=== PATIENT | female | born 1940 | race Hispanic/Latino ===

== ENCOUNTER 2017-09-14 17:08 | Emergency (ER) | payer OTHER, MEDICARE ==
[2017-09-14] MEDS ORDERED: TETANUS/DIPHTHERIA TOXOID [ADULT] 0.5 ML VIAL IM ONE (17:37)
== END 2017-09-14 17:47 | disposition home or self-care (01) ==
LOC: EDH 17:08
DX: S81.811A Laceration without foreign body, right lower leg, initial encounter (principal); E78.5 Hyperlipidemia, unspecified; I10 Essential (primary) hypertension; W22.8XXA Striking against or struck by other objects, initial encounter; Y93.89 Activity, other specified; Y92.89 Other specified places as the place of occurrence of the external cause; Y99.8 Other external cause status
CPT/HCPCS: 90471; 90714

== ENCOUNTER → 2017-10-05 | Outpatient (CLI) | payer OTHER, MEDICARE | END | disposition home or self-care (01) | LOC: RAH 10:10 | PROVIDERS: ATTEND Family Medicine | DX: Z12.31 Encounter for screening mammogram for malignant neoplasm of breast (principal) | CPT/HCPCS: 77067 ==

== ENCOUNTER → 2017-10-23 | Outpatient (CLI) | payer OTHER, MEDICARE | END | disposition home or self-care (01) | LOC: RAH 13:00 | PROVIDERS: ATTEND Family Medicine | DX: N63.20 Unspecified lump in the left breast, unspecified quadrant (principal); R92.8 Other abnormal and inconclusive findings on diagnostic imaging of breast | CPT/HCPCS: 76641; 77065 ==

== ENCOUNTER 2018-06-02 13:54 | Emergency (ER) | payer OTHER, MEDICARE ==
[2018-06-02] MEDS ORDERED: IPRATROPIUM/ALBUTEROL SULFATE 3 ML SOLUTION IH ONE (14:54)
[2018-06-02 15:09] LABS: BASOPHILS % (AUTO) 0.5 % (0.0-5.0); EOSINOPHILS % (AUTO) 1.8 % (0.0-8.0); HEMATOCRIT 29.7 % (36-48); MEAN CORPUSCULAR HGB CONC 33.4 g/dL (32.0-36.0); MEAN CORPUSCULAR VOLUME 89.7 fL (79-99); MONOCYTES % (AUTO) 6.9 % (3.0-13.0); NEUTROPHILS % (AUTO) 68.8 % (40.0-77.0); PLATELET COUNT (AUTO) 190 K/uL (130-400); RED BLOOD CELL COUNT(AUTO) 3.32 MIL/uL (4.00-5.50); RED CELL DISTRIBUTION WIDTH 13.4 % (11.0-15.5); WHITE BLOOD COUNT (AUTO) 7.4 K/uL (4.8-10.8)
[2018-06-02 15:21] LABS: CREATININE 1.1 mg/dL (0.5-1.5); POTASSIUM 3.6 mmol/L (3.5-5.1)
[2018-06-02] MEDS ORDERED: METHYLPREDNISOLONE SOD SUCC 40MG/ML 1ML ONE (15:23)
== END 2018-06-02 16:11 | disposition home or self-care (01) ==
LOC: EDH 13:54
DX: J20.9 Acute bronchitis, unspecified (principal); I10 Essential (primary) hypertension; E78.5 Hyperlipidemia, unspecified; Z98.890 Other specified postprocedural states
CPT/HCPCS: 36415; 71045; 80048; 85025; 87804 ×2; 93005; 94640; 96372; 99285; J2920

== ENCOUNTER 2018-11-16 16:36 | Emergency (ER) | payer OTHER, MEDICARE ==
[2018-11-16 17:04] LABS: APPEARANCE,URINE Clear (CLEAR); BILIRUBIN,URINE Negative (NEGATIVE); COLOR,URINE Yellow (YELLOW); GLUCOSE, URINE (UA) Negative (NEGATIVE); KETONES,URINE Negative (NEGATIVE); LEUKOCYTE ESTERASE ,URINE Negative (NEGATIVE); NITRATE,URINE Negative (NEGATIVE); OCCULT BLOOD,URINE Negative (NEGATIVE); PROTEIN,URINE Negative (NEGATIVE)
[2018-11-16] MEDS ORDERED: ONDANSETRON ODT 4 MG TAB ONE (18:01)
== END 2018-11-16 18:22 | disposition home or self-care (01) ==
LOC: EDH 16:36
DX: R30.0 Dysuria (principal); R35.0 Frequency of micturition; R11.0 Nausea; E78.5 Hyperlipidemia, unspecified; I10 Essential (primary) hypertension
CPT/HCPCS: 81003

== ENCOUNTER 2020-01-10 14:56 | Emergency (ER) | payer OTHER, MEDICARE ==
[2020-01-10] MEDS ORDERED: TETANUS/DIPHTHERIA TOXOID [ADULT] 0.5 ML VIAL IM ONE (16:37)
== END 2020-01-10 16:42 | disposition home or self-care (01) ==
LOC: EDH 14:56
DX: S81.811A Laceration without foreign body, right lower leg, initial encounter (principal); E78.5 Hyperlipidemia, unspecified; I10 Essential (primary) hypertension; W26.8XXA Contact with other sharp object(s), not elsewhere classified, initial encounter; Y93.E9 Activity, other interior property and clothing maintenance; Y92.89 Other specified places as the place of occurrence of the external cause; Y99.8 Other external cause status
CPT/HCPCS: 90471; 90714

== ENCOUNTER 2021-05-30 08:57 | Inpatient (IN) | payer OTHER, MEDICARE ==
[2021-05-30] VITALS (12 sets, daily range): BP systolic 102–174; BP diastolic 45–86
[~2021-05-30] VITALS: Ht 154.9 cm; Wt 79.1 kg
[2021-05-30] MEDS ORDERED: ACETAMINOPHEN 325 MG TAB PO SCH (09:30)
[2021-05-30] MEDS ORDERED: MAG/ALUM/SIMETH 30 ML UDCUP PO SCH (09:30)
[2021-05-30] MEDS ORDERED: LACTATED RINGERS 1000ML 1,000 ML IV SCH (09:30)
[2021-05-30 09:47] LABS: BASOPHILS % (AUTO) 0.2 % (0.0-5.0); EOSINOPHILS % (AUTO) 0.2 % (0.0-8.0); HEMATOCRIT 32.3 % (36-48); LYMPHOCYTES % (AUTO) 14.5 % (21.0-51.0); MEAN CORPUSCULAR HEMOGLOBIN 30.9 pg (27.0-33.0); MEAN CORPUSCULAR HGB CONC 36.2 g/dL (32.0-36.0); MEAN CORPUSCULAR VOLUME 85.2 fL (79-99); NEUTROPHILS % (AUTO) 76.7 % (40.0-77.0); PLATELET COUNT (AUTO) 287 K/uL (130-400); RED BLOOD CELL COUNT(AUTO) 3.79 MIL/uL (4.00-5.50); RED CELL DISTRIBUTION WIDTH 11.9 % (11.0-15.5); WHITE BLOOD COUNT (AUTO) 12.4 K/uL (4.8-10.8)
[2021-05-30] MEDS ORDERED: LACTATED RINGERS 1000ML 1,000 ML IV ONE (10:01)
[2021-05-30 10:08] LABS: ALBUMIN 3.6 g/dL (3.5-5.0); BILIRUBIN,TOTAL 0.8 mg/dL (0.2-1.0); CREATININE 0.7 mg/dL (0.5-1.5); POTASSIUM 3.9 mmol/L (3.5-5.1); TOTAL PROTEIN, SERUM 7.2 g/dL (6.0-8.3)
[2021-05-30 10:11] LABS: APPEARANCE,URINE Clear (CLEAR); BILIRUBIN,URINE Negative (NEGATIVE); COLOR,URINE Yellow (YELLOW); GLUCOSE, URINE (UA) Negative (NEGATIVE); KETONES,URINE Negative (NEGATIVE); LEUKOCYTE ESTERASE ,URINE Negative (NEGATIVE); NITRATE,URINE Negative (NEGATIVE); OCCULT BLOOD,URINE Negative (NEGATIVE); PH,URINE 7.5 (5.0-8.0); PROTEIN,URINE Negative (NEGATIVE); UROBILINOGEN,URINE 0.2 mg/dL (0.2-1.0)
[2021-05-30] MEDS ORDERED: HYDR25TA PO (10:18)
[2021-05-30] MEDS ORDERED: FAMO20TA8 PO (10:18)
[2021-05-30] MEDS ORDERED: OMEP40CA21 PO (10:18)
[2021-05-30] MEDS ORDERED: LOSA50TA64 PO (10:18)
[2021-05-30] MEDS ORDERED: METR-172 PO (10:18)
[2021-05-30] MEDS ORDERED: ATOR10 PO (10:18)
[2021-05-30] MEDS ORDERED: DOCUSATE SODIUM 100 MG CAP PO PRN (11:00)
[2021-05-30] MEDS ORDERED: NITROGLYCERIN 50MG/D5W 250ML 250 BOT IV SCH (11:00)
[2021-05-30] MEDS ORDERED: CEFTRIAXONE 1G VIAL IVP SCH (11:00)
[2021-05-30] MEDS ORDERED: HYDRALAZINE 20MG/ML VIAL IV PRN (11:00)
[2021-05-30] MEDS ORDERED: HYDRALAZINE 20MG/ML VIAL IV SCH (11:00)
[2021-05-30] MEDS: 0.9%NACL 1000ML 1,000 ML IV SCH ×3 (11:44→22:37)
[2021-05-30] MEDS ORDERED: LOSARTAN 50 MG TABLET ONE (14:06)
[2021-05-30] MEDS ORDERED: 0.9%NACL 1000ML 1,000 ML IV ONE (14:07)
[2021-05-30] MEDS ORDERED: LOSARTAN 50 MG TABLET PO SCH (15:20)
[2021-05-30 16:15] LABS: CREATININE 0.6 mg/dL (0.5-1.5); POTASSIUM 3.4 mmol/L (3.5-5.1)
[2021-05-30] MEDS ORDERED: INSULIN HUMULIN R 100 UNIT/ML 3ML SQ SCH (16:30)
[2021-05-30] MEDS: INSULIN HUMULIN R 100 UNIT/ML 3ML SQ SCH ×2 (16:30→20:29)
[2021-05-30] MEDS ORDERED: GLUCAGON 1MG KIT 1 MG ML IM PRN (16:30)
[2021-05-30] MEDS ORDERED: DEXTROSE 50%-WATER 50 ML DISP.SYRIN IV PRN (16:30)
[2021-05-30] MEDS ORDERED: HYDRALAZINE 20MG/ML VIAL ONE (17:11)
[2021-05-30] MEDS ORDERED: SODIUM CHLORIDE 1,000 MG TAB PO SCH ×2 (17:40→21:00)
[2021-05-30 20:05] LABS: POTASSIUM 3.5 mmol/L (3.5-5.1)
[2021-05-30] MEDS: ATORVASTATIN 10 MG TABLET PO SCH (21:00)
[2021-05-31] VITALS (24 sets, daily range): BP systolic 96–147; BP diastolic 47–79
[2021-05-31 00:34] LABS: CREATININE 0.9 mg/dL (0.5-1.5); POTASSIUM 3.6 mmol/L (3.5-5.1)
[2021-05-31 03:59] LABS: HEMATOCRIT 29.2 % (36-48); MEAN CORPUSCULAR HGB CONC 36.3 g/dL (32.0-36.0); MEAN CORPUSCULAR VOLUME 85.4 fL (79-99); RED BLOOD CELL COUNT(AUTO) 3.42 MIL/uL (4.00-5.50); RED CELL DISTRIBUTION WIDTH 12.4 % (11.0-15.5); WHITE BLOOD COUNT (AUTO) 10.6 K/uL (4.8-10.8)
[2021-05-31 04:12] LABS: CREATININE 0.8 mg/dL (0.5-1.5); POTASSIUM 3.7 mmol/L (3.5-5.1)
[2021-05-31] MEDS ORDERED: PANTOPRAZOLE 40 MG TAB DR ONE ×2 (04:34→19:20)
[2021-05-31] MEDS: INSULIN HUMULIN R 100 UNIT/ML 3ML SQ SCH ×4 (05:32→20:14)
[2021-05-31] MEDS ORDERED: 0.9%NACL 1000ML 1,000 ML IV ONE ×3 (05:34→20:27)
[2021-05-31] MEDS: 0.9%NACL 1000ML 1,000 ML IV SCH (05:36)
[2021-05-31] MEDS ORDERED: SERT-438 PO (07:14)
[2021-05-31] MEDS ORDERED: PANTOPRAZOLE 40 MG TAB DR PO SCH (07:30)
[2021-05-31] MEDS: SODIUM CHLORIDE 1,000 MG TAB PO SCH ×3 (08:10→20:14)
[2021-05-31] MEDS: CEFTRIAXONE 1G VIAL IVP SCH (08:10)
[2021-05-31] MEDS: ENOXAPARIN SODIUM 30 MG/0.3 ML SQ SCH (08:11)
[2021-05-31] MEDS: ONDANSETRON 4MG INJ IVP PRN ×2 (08:24→17:05)
[2021-05-31 08:32] LABS: CREATININE 0.8 mg/dL (0.5-1.5); POTASSIUM 3.5 mmol/L (3.5-5.1)
[2021-05-31] MEDS ORDERED: LOSARTAN 50 MG TABLET PO SCH (09:00)
[2021-05-31] MEDS: DOCUSATE SODIUM 100 MG CAP PO PRN (09:24)
[2021-05-31] MEDS: LOSARTAN 50 MG TABLET PO SCH (09:25)
[2021-05-31] MEDS: SUCRALFATE 1 GM TABLET PO SCH ×3 (11:48→20:14)
[2021-05-31] MEDS: LEVOFLOXACIN 500 MG TABLET PO SCH (11:50)
[2021-05-31] MEDS ORDERED: IPRATROPIUM/ALBUTEROL SULFATE 3 ML SOLUTION IH PRN (12:00)
[2021-05-31] MEDS ORDERED: ACETAMINOPHEN 325 MG TAB PO PRN (12:00)
[2021-05-31 12:37] LABS: CREATININE 0.8 mg/dL (0.5-1.5); POTASSIUM 3.4 mmol/L (3.5-5.1)
[2021-05-31] MEDS ORDERED: LIDOCAINE HCL-MPF 1% 2ML VIAL IV PRN (15:00)
[2021-05-31] MEDS: POTASSIUM CHLORIDE 20MEQ/100ML 100 ML IV PRN (15:39)
[2021-05-31 16:05] LABS: CREATININE 0.8 mg/dL (0.5-1.5); POTASSIUM 3.5 mmol/L (3.5-5.1)
[2021-05-31] MEDS ORDERED: ATORVASTATIN 10 MG TABLET ONE (19:19)
[2021-05-31] MEDS: PANTOPRAZOLE 40 MG TAB DR PO SCH (20:14)
[2021-05-31 20:58] LABS: CREATININE 0.9 mg/dL (0.5-1.5)
[2021-05-31] MEDS: ATORVASTATIN 10 MG TABLET PO SCH (21:00)
[2021-06-01] VITALS (20 sets, daily range): BP systolic 136–164; BP diastolic 55–74
[2021-06-01 04:10] LABS: HEMATOCRIT 27.4 % (36-48); MEAN CORPUSCULAR HEMOGLOBIN 31.3 pg (27.0-33.0); MEAN CORPUSCULAR VOLUME 89.3 fL (79-99); RED BLOOD CELL COUNT(AUTO) 3.07 MIL/uL (4.00-5.50); RED CELL DISTRIBUTION WIDTH 12.9 % (11.0-15.5); WHITE BLOOD COUNT (AUTO) 7.5 K/uL (4.8-10.8)
[2021-06-01 04:21] LABS: CREATININE 0.7 mg/dL (0.5-1.5); POTASSIUM 3.8 mmol/L (3.5-5.1)
[2021-06-01] MEDS: SUCRALFATE 1 GM TABLET PO SCH ×4 (05:05→21:34)
[2021-06-01] MEDS: INSULIN HUMULIN R 100 UNIT/ML 3ML SQ SCH ×4 (07:30→21:00)
[2021-06-01] MEDS: LOSARTAN 50 MG TABLET PO SCH (08:26)
[2021-06-01] MEDS: SODIUM CHLORIDE 1,000 MG TAB PO SCH ×3 (08:26→21:34)
[2021-06-01] MEDS: PANTOPRAZOLE 40 MG TAB DR PO SCH ×2 (08:26→21:34)
[2021-06-01] MEDS: CEFTRIAXONE 1G VIAL IVP SCH (08:26)
[2021-06-01] MEDS: ENOXAPARIN SODIUM 30 MG/0.3 ML SQ SCH (08:27)
[2021-06-01] MEDS: LEVOFLOXACIN 500 MG TABLET PO SCH (12:02)
[2021-06-01 13:13] LABS: CREATININE 0.7 mg/dL (0.5-1.5); POTASSIUM 3.6 mmol/L (3.5-5.1)
[2021-06-01] MEDS: DOCUSATE SODIUM 100 MG CAP PO PRN (16:39)
[2021-06-01] MEDS: POTASSIUM CHLORIDE 20MEQ/100ML 100 ML IV PRN (16:39)
[2021-06-01] MEDS ORDERED: ATORVASTATIN 10 MG TABLET ONE (21:36)
[2021-06-01] MEDS: ATORVASTATIN 10 MG TABLET PO SCH (21:37)
[2021-06-02 03:06] VITALS: BP 142/66
[2021-06-02 03:54] LABS: HEMATOCRIT 27.5 % (36-48); MEAN CORPUSCULAR HEMOGLOBIN 30.8 pg (27.0-33.0); MEAN CORPUSCULAR HGB CONC 34.9 g/dL (32.0-36.0); MEAN CORPUSCULAR VOLUME 88.1 fL (79-99); RED BLOOD CELL COUNT(AUTO) 3.12 MIL/uL (4.00-5.50); RED CELL DISTRIBUTION WIDTH 12.7 % (11.0-15.5); WHITE BLOOD COUNT (AUTO) 7.3 K/uL (4.8-10.8)
[2021-06-02 04:04] LABS: CREATININE 0.8 mg/dL (0.5-1.5); POTASSIUM 4.2 mmol/L (3.5-5.1)
[2021-06-02] MEDS: INSULIN HUMULIN R 100 UNIT/ML 3ML SQ SCH ×2 (06:42→11:30)
[2021-06-02 08:00] VITALS: BP 174/84
[2021-06-02] MEDS: SUCRALFATE 1 GM TABLET PO SCH ×2 (08:37→15:38)
[2021-06-02] MEDS: CEFTRIAXONE 1G VIAL IVP SCH (08:37)
[2021-06-02] MEDS: SODIUM CHLORIDE 1,000 MG TAB PO SCH ×2 (08:38→15:38)
[2021-06-02] MEDS: PANTOPRAZOLE 40 MG TAB DR PO SCH (08:38)
[2021-06-02] MEDS: LOSARTAN 50 MG TABLET PO SCH (08:38)
[2021-06-02] MEDS: ENOXAPARIN SODIUM 30 MG/0.3 ML SQ SCH (08:39)
[2021-06-02 12:00] VITALS: BP 153/72
[2021-06-02] MEDS: LEVOFLOXACIN 500 MG TABLET PO SCH (15:38)
== END 2021-06-02 17:30 | DRG 641 ==
LOC: EDH 08:57 → 2DH 08:58 → EDH 13:21 → 3BH 06-01 17:51
PROVIDERS: ADMIT Internal Medicine Critical Care Medicine; ATTEND Internal Medicine Critical Care Medicine
DX: E87.1 Hypo-osmolality and hyponatremia (principal); I16.0 Hypertensive urgency; E78.5 Hyperlipidemia, unspecified; K21.9 Gastro-esophageal reflux disease without esophagitis; K29.70 Gastritis, unspecified, without bleeding; Z68.31 Body mass index [BMI] 31.0-31.9, adult; E66.9 Obesity, unspecified; E11.9 Type 2 diabetes mellitus without complications; E78.00 Pure hypercholesterolemia, unspecified; I10 Essential (primary) hypertension; I25.10 Atherosclerotic heart disease of native coronary artery without angina pectoris; S50.312A Abrasion of left elbow, initial encounter; S80.212A Abrasion, left knee, initial encounter; S40.212A Abrasion of left shoulder, initial encounter; W19.XXXA Unspecified fall, initial encounter; Y93.89 Activity, other specified; Y92.098 Other place in other non-institutional residence as the place of occurrence of the external cause; Y99.8 Other external cause status; Z79.899 Other long term (current) drug therapy
CPT/HCPCS: 36415; 71045; 72170; 73070; 73562; 80048; 80053; 81003; 82550; 82948; 83874; 84443; 84484; 85025; 85027; 86850; 86900; 86901; 87040; 87088; 92610; 93005; 97039; 99291; A6250; G0378; J0360; J0696; J1650; J2405; J3480; J3490; J7030; J7120

== ENCOUNTER → 2021-12-07 | Outpatient (CLI) | payer OTHER, MEDICARE ==
[~2021-12-07] MED LIST: ATOR10 PO; LOSA50TA64 PO; SERT-438 PO
== END | disposition home or self-care (01) ==
LOC: RAH 10:26
PROVIDERS: ATTEND Family Medicine
DX: Z12.31 Encounter for screening mammogram for malignant neoplasm of breast (principal)
CPT/HCPCS: 77067

== ENCOUNTER → 2022-06-27 | Outpatient (CLI) | payer OTHER, MEDICARE ==
[2022-06-27 12:33] LABS: BASOPHILS % (AUTO) 0.4 % (0.0-5.0); EOSINOPHILS % (AUTO) 8.3 % (0.0-8.0); HEMATOCRIT 32.1 % (36-48); LYMPHOCYTES % (AUTO) 28.8 % (21.0-51.0); MEAN CORPUSCULAR HEMOGLOBIN 28.7 pg (27.0-33.0); MEAN CORPUSCULAR HGB CONC 32.4 g/dL (32.0-36.0); MEAN CORPUSCULAR VOLUME 88.7 fL (79-99); MONOCYTES % (AUTO) 7.2 % (3.0-13.0); NEUTROPHILS % (AUTO) 54.9 % (40.0-77.0); PLATELET COUNT (AUTO) 276 K/uL (130-400); RED BLOOD CELL COUNT(AUTO) 3.62 MIL/uL (4.00-5.50); RED CELL DISTRIBUTION WIDTH 13.6 % (11.0-15.5)
[2022-06-27 12:35] LABS: POTASSIUM 4.4 mmol/L (3.5-5.1)
[2022-06-27 14:08] LABS: B-TYPE NATRIURETIC PEPTIDE 50 pg/mL (0-100)
== END | disposition home or self-care (01) ==
LOC: LAB 11:39
PROVIDERS: ATTEND Internal Medicine Cardiovascular Disease
DX: I50.32 Chronic diastolic (congestive) heart failure (principal)
CPT/HCPCS: 36415; 80048; 83880; 85025

== ENCOUNTER → 2022-12-06 | Outpatient (CLI) | payer OTHER, MEDICARE | END | disposition home or self-care (01) | LOC: RAH 12:50 | PROVIDERS: ATTEND Family Medicine | DX: M75.110 Incomplete rotator cuff tear or rupture of unspecified shoulder, not specified as traumatic (principal); M19.90 Unspecified osteoarthritis, unspecified site; M25.70 Osteophyte, unspecified joint | CPT/HCPCS: 73200 ==

== ENCOUNTER → 2023-03-19 | Outpatient (CLI) | payer OTHER, MEDICARE ==
[~2023-03-19] MED LIST changes: +REGADENOSON 0.4 MG/5 ML PF SYG IVP SCH
== END | disposition home or self-care (01) ==
LOC: SHCH 08:25
PROVIDERS: ATTEND Internal Medicine Cardiovascular Disease
DX: Z01.810 Encounter for preprocedural cardiovascular examination (principal); R06.02 Shortness of breath; R94.39 Abnormal result of other cardiovascular function study; R00.8 Other abnormalities of heart beat
CPT/HCPCS: 78452; 93017; J2785; A9500 ×2; 96374

== ENCOUNTER → 2023-06-25 | Outpatient (CLI) | payer OTHER, MEDICARE ==
[~2023-06-25] MED LIST changes: -REGADENOSON 0.4 MG/5 ML PF SYG IVP SCH
[2023-06-25 12:43] LABS: ALBUMIN 3.5 g/dL (3.5-5.0); BILIRUBIN,TOTAL 0.4 mg/dL (0.2-1.0); CREATININE 1.3 mg/dL (0.5-1.5); POTASSIUM 4.5 mmol/L (3.5-5.1); THYROID STIMULATING HORMONE 4.48 uIU/mL (0.36-3.74); TOTAL PROTEIN, SERUM 7.7 g/dL (6.0-8.3)
[2023-06-25 13:17] LABS: T4 (THYROXINE) 9.2 ug/dL (4.7-13.3)
== END | disposition home or self-care (01) ==
LOC: LAB 08:38
PROVIDERS: ATTEND Internal Medicine Cardiovascular Disease
DX: I11.0 Hypertensive heart disease with heart failure (principal); I50.32 Chronic diastolic (congestive) heart failure; I10 Essential (primary) hypertension
CPT/HCPCS: 36415; 80053; 83880; 84436; 84443

== ENCOUNTER → 2023-07-04 | Outpatient (CLI) | payer OTHER, MEDICARE | END | disposition home or self-care (01) | LOC: RAH 13:41 | PROVIDERS: ATTEND Internal Medicine Cardiovascular Disease | DX: R60.9 Edema, unspecified (principal) | CPT/HCPCS: 93970 ==

== ENCOUNTER → 2023-07-11 | Outpatient (CLI) | payer OTHER, MEDICARE ==
[2023-07-11 16:49] LABS: CREATININE 1.3 mg/dL (0.5-1.5); POTASSIUM 4.6 mmol/L (3.5-5.1)
== END | disposition home or self-care (01) ==
LOC: LAB 13:29
PROVIDERS: ATTEND Internal Medicine Cardiovascular Disease
DX: R94.39 Abnormal result of other cardiovascular function study (principal)
CPT/HCPCS: 36415; 80048

== ENCOUNTER → 2023-07-18 | Outpatient (CLI) | payer OTHER, MEDICARE ==
[~2023-07-18] MED LIST changes: +IOHEXOL 350 MG/ML 100ML INFUS..BTL IV ONE
== END | disposition home or self-care (01) ==
LOC: RAH 07:49
PROVIDERS: ATTEND Internal Medicine Cardiovascular Disease
DX: R94.39 Abnormal result of other cardiovascular function study (principal)
CPT/HCPCS: 75574; Q9967

== ENCOUNTER 2024-02-05 07:37 | Day surgery (SDC) | payer OTHER, MEDICARE ==
[2024-02-05] VITALS (12 sets, daily range): BP systolic 142–165; BP diastolic 59–75; PULSE 6–69; RESP 14–18
[~2024-02-05] VITALS: Ht 154.9 cm; Wt 77.1 kg
[~2024-02-05 07:37] MED LIST changes: -IOHEXOL 350 MG/ML 100ML INFUS..BTL IV ONE
[2024-02-05] MEDS ORDERED: ALBU0.63 IH (08:35)
[2024-02-05] MEDS: IPRATROPIUM/ALBUTEROL SULFATE 3 ML SOLUTION IH ONE ×2 (08:46→08:47)
[2024-02-05] MEDS: 0.9%NACL 1000ML 1,000 ML IV ONE (08:52)
[2024-02-05] MEDS ORDERED: PROPOFOL 10 MG/ML 20ML VIAL IV ONE (09:50)
== END 2024-02-05 10:55 | disposition home or self-care (01) ==
LOC: ENDO 07:37 → DAH 07:37 → ENDO 10:55
PROVIDERS: ATTEND Internal Medicine Gastroenterology
DX: R10.13 Epigastric pain (principal); K29.50 Unspecified chronic gastritis without bleeding; K29.40 Chronic atrophic gastritis without bleeding; K31.A15 Gastric intestinal metaplasia without dysplasia, involving multiple sites; K57.30 Diverticulosis of large intestine without perforation or abscess without bleeding; I10 Essential (primary) hypertension; E11.9 Type 2 diabetes mellitus without complications; E78.5 Hyperlipidemia, unspecified; Z86.010 Personal history of colon polyps; Z90.710 Acquired absence of both cervix and uterus; Z98.890 Other specified postprocedural states; Z88.1 Allergy status to other antibiotic agents; Z88.8 Allergy status to other drugs, medicaments and biological substances; Z79.899 Other long term (current) drug therapy
CPT/HCPCS: 82948 ×2; 43239; 94640; J7030 ×2; J2704; A4620; A4215; A4223; A7002; A4222; A4221; A4663; A4606; J3490

== ENCOUNTER → 2024-11-18 | Outpatient (CLI) | payer OTHER, MEDICARE ==
[~2024-11-18] MED LIST changes: +ALBU0.63 IH; +HYDR12.54 PO; +LORA10TA7 PO; +OLME20TA68 PO; +OMEP40CA21 PO; +SUCR1TAB2 PO
== END | disposition home or self-care (01) ==
LOC: WHH 09:09
PROVIDERS: ATTEND Family Medicine
DX: S81.802D Unspecified open wound, left lower leg, subsequent encounter (principal); S81.812D Laceration without foreign body, left lower leg, subsequent encounter; I89.0 Lymphedema, not elsewhere classified; J44.9 Chronic obstructive pulmonary disease, unspecified; I87.2 Venous insufficiency (chronic) (peripheral); I10 Essential (primary) hypertension; H40.9 Unspecified glaucoma; K21.9 Gastro-esophageal reflux disease without esophagitis; E78.5 Hyperlipidemia, unspecified; E66.01 Morbid (severe) obesity due to excess calories; F32.A Depression, unspecified; Z87.891 Personal history of nicotine dependence; Z98.49 Cataract extraction status, unspecified eye; Z79.899 Other long term (current) drug therapy; X58.XXXD Exposure to other specified factors, subsequent encounter
CPT/HCPCS: G0463; A6209 ×4

== ENCOUNTER → 2024-12-01 | Outpatient (CLI) | payer OTHER, MEDICARE ==
[~2024-12-01] MED LIST changes: +LIDOCAINE HCL 4% LTA SOL 4 ML VIAL TP ONE
== END | disposition home or self-care (01) ==
LOC: WHH 08:52
PROVIDERS: ATTEND Family Medicine
DX: S81.812D Laceration without foreign body, left lower leg, subsequent encounter (principal); I89.0 Lymphedema, not elsewhere classified; J44.9 Chronic obstructive pulmonary disease, unspecified; I87.2 Venous insufficiency (chronic) (peripheral); I10 Essential (primary) hypertension; H40.9 Unspecified glaucoma; K21.9 Gastro-esophageal reflux disease without esophagitis; E78.5 Hyperlipidemia, unspecified; E66.01 Morbid (severe) obesity due to excess calories; F32.A Depression, unspecified; Z87.891 Personal history of nicotine dependence; Z98.49 Cataract extraction status, unspecified eye; Z79.899 Other long term (current) drug therapy; X58.XXXD Exposure to other specified factors, subsequent encounter
CPT/HCPCS: 11042; 11045; A6209

== ENCOUNTER → 2024-12-18 | Outpatient (CLI) | payer OTHER, MEDICARE ==
[~2024-12-18] MED LIST changes: -LIDOCAINE HCL 4% LTA SOL 4 ML VIAL TP ONE
== END | disposition home or self-care (01) ==
LOC: WHH 08:48
PROVIDERS: ATTEND Family Medicine
DX: S81.802D Unspecified open wound, left lower leg, subsequent encounter (principal); J44.9 Chronic obstructive pulmonary disease, unspecified; I89.0 Lymphedema, not elsewhere classified; I87.2 Venous insufficiency (chronic) (peripheral); I10 Essential (primary) hypertension; E85.82 Wild-type transthyretin-related (ATTR) amyloidosis; H40.9 Unspecified glaucoma; K21.9 Gastro-esophageal reflux disease without esophagitis; E78.5 Hyperlipidemia, unspecified; E66.01 Morbid (severe) obesity due to excess calories; F32.A Depression, unspecified; Z68.34 Body mass index [BMI] 34.0-34.9, adult; Z87.891 Personal history of nicotine dependence; Z98.49 Cataract extraction status, unspecified eye; Z79.899 Other long term (current) drug therapy; X58.XXXD Exposure to other specified factors, subsequent encounter
CPT/HCPCS: G0463